=== PATIENT | female | born 1980 | race Two or more races ===

== ENCOUNTER 2019-08-30 08:20 | Emergency (ER) | payer MEDICAID ==
[~2019-08-30] VITALS: Ht 160 cm; Wt 81.0 kg
[2019-08-30] MEDS ORDERED: ACETAMINOPHEN 325MG TABLET PO ONE (09:30)
[2019-08-30 09:54] LABS: CLARITY URINE CLEAR (CLEAR); COLOR URINE YELLOW (YELLOW); KETONES URINE 1+ (NEGATIVE); LEUKOCYTE ESTERASE URINE NEGATIVE (NEGATIVE); NITRITE URINE NEGATIVE (NEGATIVE); OCCULT BLOOD URINE NEGATIVE (NEGATIVE); PH URINE 5.5 (4.5-8.0); PROTEIN URINE NEGATIVE (NEGATIVE); SPECIFIC GRAVITY URINE 1.022 (1.005-1.030); UROBILINOGEN URINE 0.2 E.U./dL (0.2-1.0)
[2019-08-30 11:11] VITALS: BP 120/82
[2019-08-30 11:19] LABS: BASOPHILS % 0.5 % (0.0-2.0); EOSINOPHILS % 0.7 % (0.0-5.0); HEMATOCRIT. 39.8 % (36.0-48.0); HEMOGLOBIN. 13.8 g/dL (12.0-16.0); LYMPHOCYTES % 20.2 % (20.0-50.0); MEAN CORPUSCULAR HEMOGLOBIN 31.4 pg (28.0-32.0); MEAN CORPUSCULAR VOLUME 90.1 fL (81.0-99.0); MEAN PLATELET VOLUME 9.1 fl (7.4-10.4); NEUTROPHILS % 73.6 % (40.0-76.0); PLATELET 204 x1000/uL (130-400); RED BLOOD CELL COUNT 4.42 mill/uL (4.2-5.4); RED CELL DISTRIBUTION WIDTH 14.3 % (11.6-14.6)
[2019-08-30 11:24] LABS: CHLORIDE 107 mEq/L (98-107)
[2019-08-30 11:49] LABS: B-HCG QUANTITATIVE 96788 mIU/mL (<3)
== END 2019-08-30 11:51 | disposition home or self-care (01) ==
LOC: ER 08:20
DX: O20.0 Threatened abortion (principal); O34.11 Maternal care for benign tumor of corpus uteri, first trimester; Z3A.12 12 weeks gestation of pregnancy; Z98.890 Other specified postprocedural states
CPT/HCPCS: 36415; 76705; 76801; 80053; 81003; 81025; 84702; 85025; 86850; 86900; 99285

== ENCOUNTER 2019-09-26 03:51 | Emergency (ER) | payer MEDICAID, MEDICARE ==
[~2019-09-26] VITALS: Ht 160 cm; Wt 68.0 kg
[2019-09-26 04:36] LABS: HEMATOCRIT. 41.8 % (36.0-48.0); MEAN CORPUSCULAR HEMOGLOBIN 30.4 pg (28.0-32.0); MEAN CORPUSCULAR VOLUME 90.4 fL (81.0-99.0); MEAN PLATELET VOLUME 8.5 fl (7.4-10.4); PLATELET 210 x1000/uL (130-400); RED BLOOD CELL COUNT 4.62 mill/uL (4.2-5.4); RED CELL DISTRIBUTION WIDTH 14.3 % (11.6-14.6)
[2019-09-26 04:44] LABS: CHLORIDE 107 mEq/L (98-107)
[2019-09-26 04:45] LABS: PROTHROMBIN TIME 10.5 sec (9.6-11.0)
[2019-09-26 04:47] LABS: ETHANOL BLOOD < 10 mg/dL
[2019-09-26 04:53] LABS: HCG SCREEN POSITIVE
[2019-09-26] MEDS ORDERED: SODIUM CHLORIDE 0.9% 1,000 ML IV ONE (04:59)
[2019-09-26] MEDS ORDERED: ONDANSETRON HCL 4MG/2ML INJ IV STA (04:59)
[2019-09-26 06:02] LABS: PLATELET ESTIMATE NORMAL
[2019-09-26] MEDS ORDERED: ACETAMINOPHEN 325MG TABLET PO ONE (08:45)
[2019-09-26] MEDS ORDERED: ONDANSETRON HCL 4MG/2ML INJ IV ONE (08:45)
[2019-09-26 08:58] LABS: CLARITY URINE CLOUDY (CLEAR); COLOR URINE YELLOW (YELLOW); KETONES URINE 3+ (NEGATIVE); LEUKOCYTE ESTERASE URINE 3+ (NEGATIVE); NITRITE URINE POSITIVE (NEGATIVE); OCCULT BLOOD URINE 1+ (NEGATIVE); PH URINE 6.5 (4.5-8.0); PROTEIN URINE TRACE (NEGATIVE); SPECIFIC GRAVITY URINE 1.014 (1.005-1.030); UROBILINOGEN URINE 0.2 E.U./dL (0.2-1.0)
[2019-09-26 09:27] LABS: *AMPHETAMINES SCREEN URINE NEGATIVE (NEGATIVE); *BARBITURATES SCREEN URINE NEGATIVE (NEGATIVE); *BENZODIAZEPINES SCREEN URINE NEGATIVE (NEGATIVE); *COCAINE SCREEN URINE NEGATIVE (NEGATIVE); METHADONE URINE SCREEN NEGATIVE (NEGATIVE); OPIATES URINE SCREEN NEGATIVE (NEGATIVE)
[2019-09-26 09:28] LABS: CANNABINOID URINE SCREEN NEGATIVE (NEGATIVE); PHENCYCLIDINE URINE SCREEN NEGATIVE (NEGATIVE)
[2019-09-26] MEDS ORDERED: CEFTRIAXONE 1 G PREMIX 50 ML IV ONE (09:30)
[2019-09-26 11:30] VITALS: BP 113/67
== END 2019-09-26 11:40 | disposition short-term general hospital (02) ==
LOC: ER 03:51 → EDBEDREQ 08:37 → ER 11:40 → CANBEDREQ 12:48
DX: O21.8 Other vomiting complicating pregnancy (principal); Z3A.16 16 weeks gestation of pregnancy; Z98.890 Other specified postprocedural states
CPT/HCPCS: 36415; 76805; 80053; 80305; 80320; 81003; 83690; 84702; 84703; 85025; 85610; 86850; 86900; 86901; 96361; 96365; 96375; 96376; 99285; J0696; J2405; J7030; G0480

== ENCOUNTER 2020-01-06 14:13 | Observation (INO) | payer MEDICARE ==
[~2020-01-06] VITALS: Ht 160 cm; Wt 78.5 kg
[2020-01-06 15:18] LABS: CLARITY URINE CLEAR (CLEAR); COLOR URINE YELLOW (YELLOW); KETONES URINE 1+ (NEGATIVE); LEUKOCYTE ESTERASE URINE NEGATIVE (NEGATIVE); NITRITE URINE NEGATIVE (NEGATIVE); OCCULT BLOOD URINE NEGATIVE (NEGATIVE); PROTEIN URINE NEGATIVE (NEGATIVE); SPECIFIC GRAVITY URINE 1.015 (1.005-1.030); UROBILINOGEN URINE 0.2 E.U./dL (0.2-1.0)
== END 2020-01-06 16:25 | disposition home or self-care (01) ==
LOC: 8 EST LDRP 14:13
PROVIDERS: ADMIT Obstetrics & Gynecology; ATTEND Obstetrics & Gynecology
DX: O99.891 Other specified diseases and conditions complicating pregnancy (principal); M54.5 Low back pain; Z3A.30 30 weeks gestation of pregnancy
CPT/HCPCS: 59025; 81003; G0378; 99281